=== PATIENT | female | born 1965 | race Caucasian/White ===

== ENCOUNTER → 2016-07-05 | Outpatient (CLI) | payer MEDICARE ==
[~2016-07-05] MED LIST: ALBUTEROL2.5 MG/3 M INH; AZELASTINE137 MCG/0.; BRILINTA90 MG PO; BUMEX 1MG TABLET1 MG PO; CLARITIN 10MG T10 MG PO; COLACE100 MG PO; ECOTRIN325 MG PO; FLEXERIL 10 MG10 MG PO; FLUNISOLIDE25 ML; GLUCOPHAGE 500500 MG PO; GLUCOTROL5 MG PO; HUMALOG100 UNIT/1 SQ; JANUVIA100 MG PO; KLOR-CON M2020 MEQ PO; LASIX40 MG PO; LEVAQUIN500 MG PO; LEVOTHYROXINE75 MCG PO; LIPITOR20 MG PO; LOPRESSOR 25 MG25 MG PO; METOLAZONE5 MG PO; MYRBETRIQ50 MG PO; NEURONTIN 300300 MG PO; NITROSTAT0.4 MG SL; NORCO 5-325 TA1 EACH PO; PERCOCET 7.5-31 EACH PO; PLAVIX 75 MG TA75 MG PO; PLETAL 100 MG100 MG PO; PROTONIX40 MG PO; PROZAC40 MG PO; SPIRIVA RESPIMAT4 GM INH; SPIRONOLACTONE25 MG PO; SYMBICORT 16010.2 GM INH; TOUJEO SC; TRADJENTA5 MG PO; VENTOLIN HFA 66.7 GM INH; VITAMIN B-121000 MC3 PO; VITAMIN D 11000 UNIT PO; ZYRTEC10 MG PO
[2016-07-05 11:42] LABS: HEMOGLOBIN 11.1 gm/dl (12.3-15.3); WHITE BLOOD COUNT 9.1 K/UL (4.5-11.0)
== END ==
LOC: LAB 11:15
PROVIDERS: Physician Assistant
DX: D72.829 Elevated white blood cell count, unspecified (principal)
CPT/HCPCS: 36415; 85025

== ENCOUNTER 2016-10-16 06:28 | Inpatient (IN) | payer MEDICARE, MEDICAID ==
[~2016-10-16] VITALS: Ht 170.2 cm; Wt 144.7 kg
[~2016-10-16 06:28] MED LIST changes: -AZELASTINE137 MCG/0.; -BRILINTA90 MG PO; -BUMEX 1MG TABLET1 MG PO; -CLARITIN 10MG T10 MG PO; -FLUNISOLIDE25 ML; -HUMALOG100 UNIT/1 SQ; -LEVAQUIN500 MG PO; -METOLAZONE5 MG PO; -MYRBETRIQ50 MG PO; -PERCOCET 7.5-31 EACH PO; -PLETAL 100 MG100 MG PO; -PROZAC40 MG PO; -SPIRIVA RESPIMAT4 GM INH; -SPIRONOLACTONE25 MG PO; -TOUJEO SC; -TRADJENTA5 MG PO
[2016-10-16 07:48] LABS: HEMOGLOBIN 10.8 gm/dl (12.3-15.3); RED BLOOD COUNT 3.93 M/UL (4.00-5.10)
[2016-10-16 08:13] LABS: BUN/CREATININE RATIO 12 (0-10)
[2016-10-16] MEDS ORDERED: BRILINTA90 MG PO (14:48)
[2016-10-16] MEDS ORDERED: CLARITIN 10MG T10 MG PO (14:52)
[2016-10-16] MEDS ORDERED: MYRBETRIQ50 MG PO (14:53)
[2016-10-16] MEDS ORDERED: TOUJEO SC (14:53)
[2016-10-16] MEDS ORDERED: HUMALOG100 UNIT/1 SQ ×2 (14:54)
[2016-10-16] MEDS ORDERED: PLETAL 100 MG100 MG PO (14:55)
[2016-10-16] MEDS ORDERED: TRADJENTA5 MG PO (14:55)
[2016-10-16] MEDS ORDERED: BUMEX 1MG TABLET1 MG PO (14:56)
[2016-10-16] MEDS ORDERED: SPIRIVA RESPIMAT4 GM INH (14:59)
[2016-10-16] MEDS ORDERED: PROZAC40 MG PO (15:02)
[2016-10-16] MEDS ORDERED: METOLAZONE5 MG PO (15:04)
[2016-10-16] MEDS ORDERED: SPIRONOLACTONE25 MG PO (15:07)
[2016-10-16] MEDS ORDERED: FLUNISOLIDE25 ML (15:09)
[2016-10-16] MEDS ORDERED: AZELASTINE137 MCG/0. (15:10)
--- NOTE | 2016-10-16 19:43 | NUR ---
WHEN THE PATIENT RETURNED FROM SURGERY, WE WERE HAVING TROUBLE KEEPING HER OXYGEN LEVEL ABOVE 89-90 PERCENT. SHE WAS ON 6L O2 AND DID NOT APPEAR TO BE IN ANY RESPIRATORY DISTRESS. THE PATIENT STATED "THIS IS WHERE I ALWAYS AM, IN THE 70S AND 80S." SHE WAS ORDERED A BIPAP AT HOUR OF SLEEP SO I CALLED RESPIRATORY THERAPY TO COME SET IT UP AND SEE IF SHE NEEDED TO BE PUT ON IT. WHEN THEY CAME TO THE FLOOR THEY SAW THE SETTINGS OF 15/10 AND STATED THAT THIS COULD NOT BE A CORRECT SETTING. I CALLED WITH THIS INFORMATION AND STATED THAT WE COULD PUT HER ON 12/6 BIPAP SETTING. I INFORMED RESPIRATORY THERAPY OF THIS WELL THE FACT THAT THE PATIENT HAD DUONEBS THAT SHE COULD HAVE NEEDED EVERY SIX HOURS. THEY CAME AND ASSESSED HER. THE PATIENT'S OXYGEN LEVEL OF THIS WRITING IS 92% ON 5L O2.
[2016-10-17 04:59] LABS: RED BLOOD COUNT 3.38 M/UL (4.00-5.10); WHITE BLOOD COUNT 9.5 K/UL (4.5-11.0)
[2016-10-17 05:35] LABS: BUN/CREATININE RATIO 12 (0-10)
[2016-10-18 05:02] LABS: HEMOGLOBIN 9.5 gm/dl (12.3-15.3); RED BLOOD COUNT 3.48 M/UL (4.00-5.10)
[2016-10-18 05:05] LABS: WHITE BLOOD COUNT 6.8 K/UL (4.5-11.0)
[2016-10-18 05:20] LABS: BUN/CREATININE RATIO 15 (0-10)
--- NOTE | 2016-10-18 15:38 | NUR ---
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 DEMONSTRATED AND VERB INFECTION CONTROL. DISCUSSED ABOUT S/SX OF WOUND INFECTION, WOUND CARE AND CHANGE OF POSITION OF PATIENT - VERB UNDERSTANDING.
[2016-10-18] MEDS ORDERED: PERCOCET 7.5-31 EACH PO (16:34)
[2016-10-18] MEDS ORDERED: LEVAQUIN500 MG PO (16:35)
== END 2016-10-18 18:10 | disposition home or self-care (01) | DRG 854 ==
LOC: ER1 06:28 → ZEROF 08:58 → M/S 08:58
PROVIDERS: Family Medicine; Physician Assistant Medical; Surgery; ADMIT Internal Medicine
PROC: 0H98XZZ Drainage of Buttock Skin, External Approach (ICD-10-PCS; 2016-10-16)
PROC: 5A09357 Assistance with Respiratory Ventilation, Less than 24 Consecutive Hours, Continuous Positive Airway Pressure (ICD-10-PCS; 2016-10-16)
PROC: 0J990ZZ Drainage of Buttock Subcutaneous Tissue and Fascia, Open Approach (ICD-10-PCS; principal; 2016-10-16 14:21)
DX: A41.9 Sepsis, unspecified organism (principal); L02.31 Cutaneous abscess of buttock; E66.2 Morbid (severe) obesity with alveolar hypoventilation; Z68.43 Body mass index [BMI] 50.0-59.9, adult; L03.317 Cellulitis of buttock; I50.32 Chronic diastolic (congestive) heart failure; B95.2 Enterococcus as the cause of diseases classified elsewhere; E87.6 Hypokalemia; J44.9 Chronic obstructive pulmonary disease, unspecified; E11.9 Type 2 diabetes mellitus without complications; I25.10 Atherosclerotic heart disease of native coronary artery without angina pectoris; I27.2 Other secondary pulmonary hypertension; E03.9 Hypothyroidism, unspecified; Z98.61 Coronary angioplasty status; Z95.2 Presence of prosthetic heart valve; Z87.891 Personal history of nicotine dependence; Z79.02 Long term (current) use of antithrombotics/antiplatelets; Z79.82 Long term (current) use of aspirin; Z79.84 Long term (current) use of oral hypoglycemic drugs; Z79.4 Long term (current) use of insulin; Z99.81 Dependence on supplemental oxygen; Z79.891 Long term (current) use of opiate analgesic; Z79.51 Long term (current) use of inhaled steroids; Z79.899 Other long term (current) drug therapy; Z90.49 Acquired absence of other specified parts of digestive tract; Z98.890 Other specified postprocedural states; Z82.3 Family history of stroke; Z84.1 Family history of disorders of kidney and ureter; Z82.5 Family history of asthma and other chronic lower respiratory diseases; Z82.0 Family history of epilepsy and other diseases of the nervous system; Z82.49 Family history of ischemic heart disease and other diseases of the circulatory system
CPT/HCPCS: 10060; 36415; 80048; 80053; 80202; 82962; 83605; 83735; 84100; 84132; 84439; 84443; 85025; 85027; 86140; 87040; 87070; 87077; 87186; 87205; 94640; 94660; 94664; 96361; 96365; 96366; 99284; J1956; J2250; J2270; J2795; J3010; J3370; J7030; J7070; J7120